=== PATIENT | female | born 1990 | race Caucasian/White ===

== ENCOUNTER → 2020-09-11 10:16 | Outpatient (CLI) | payer OTHER, SELFPAY ==
[2020-09-11 11:00] LABS: Basophils # 0.1 K/mm3 (0-0.2); Eosinophils # 0.4 K/mm3 (0.0-0.4); Hematocrit 49.6 % (37.0-47.0); Lymphocytes # 1.9 K/mm3 (0.7-4.5); Lymphocytes % 31.5 % (10-50); Mean Corpuscular HGB Conc 32.3 g/dL (31.8-35.4); Mean Corpuscular Hemoglobin 31.9 pg (27.0-31.2); Mean Corpuscular Volume 98.9 fl (81-99); Mean Platelet Volume 7.2 fl (7.4-10.4); Monocytes # 0.3 K/mm3 (0.1-1.0); Monocytes % 5.3 % (1.7-9.3); Neutrophils # 3.4 K/mm3 (1.8-7.8); Neutrophils % 56.1 % (37.0-80.0); Platelet Count 339 K/mm3 (142-424); Red Blood Count 5.01 M/mm3 (4.20-5.40); Red Cell Distribution Width 12.8 % (11.5-17.5); White Blood Count 6.1 K/mm3 (4.8-10.8)
[2020-09-11 12:13] LABS: Chloride 103 mmol/L (98-107)
[2020-09-11 12:14] LABS: Potassium 4.1 mmoL/L (3.5-5.1); Sodium 137 mmol/L (136-145)
[2020-09-11 12:16] LABS: Alanine Aminotransferase 18 U/L (12-78); Alkaline Phosphatase 54 U/L (38-126); Aspartate Amino Transferase 22 U/L (14-36); Bilirubin,Total 0.4 mg/dl (0.2-1.3); Blood Urea Nitrogen 8 mg/dl (7-17); Estimated Glomerular Filt Rate 117 ml/min (>60); GFR (African American) 141 ML/MIN (>60)
[2020-09-11 12:17] LABS: Albumin Level 4.7 g/dl (3.5-5.0); Albumin/Globulin Ratio 1.5 (1.1-1.8); Anion Gap 9.1 mEq/L (5-15); Calcium 9.6 mg/dl (8.4-10.2); Carbon Dioxide 29 mmol/L (22.0-30.0); Globulin 3.2 g/dL (1.3-3.2); Glucose 91 mg/dl (74-100); Total Protein,Serum 7.9 g/dl (6.3-8.2)
[2020-09-12 10:04] LABS: Hep A Ab, IgM Negative (Negative); Hepatitis B Core Antibody IgM Negative (Negative); Hepatitis B Surface Antigen Negative (Negative)
[2020-09-12 10:27] LABS: HIV Screen 4th Generation wRfx Non Reactive (Non Reactive); Hepatitis C Antibody <0.1 s/co ratio (0.0-0.9)
[2020-09-12 15:11] LABS: Rapid Plasma Reagin Ab Titer Non Reactive (NonRea<1:1)
== END ==
PROVIDERS: Visit Provider Obstetrics & Gynecology
DX: F11.20 Opioid dependence, uncomplicated (principal); F17.200 Nicotine dependence, unspecified, uncomplicated
CPT/HCPCS: 36415; 80053; 80074; 85025; 86592; 86703; G0432

== ENCOUNTER 2022-10-04 12:30 | Emergency (ER) | payer BC, SELFPAY ==
--- NOTE | 2022-10-04 12:50 | EXP.UTC ---
Discharge Plan Disposition Patient Disposition: Still a Patient Condition: Fair Referrals Follow up/Referrals: Ariel Garza [Primary Care Provider] - See instructions Clinical Impressions Clinical Impression: Abdominal pain Discharge ED Provider: Dheeraj Mauricio [facility] [place] General Stated complaint: RT side rib pain when breathing Time Seen by Provider: 10/04/22 12:50 History of Present Illness Provider Complaint: She states that for the past 1 day she has had right sided abdominal pain. She describes the pain as sharp, constant and 8/10 on pain scale. She denies any urinary symptoms. She still has her appendix. Related Data Allergies Allergy/AdvReac Type Severity Reaction Status Date / Time codeine Allergy Verified 10/04/22 13:39 tramadol Allergy Verified 10/04/22 13:39 [facility] Disclaimer: The information contained in this section may have been updated after the patient was seen, as this information can be updated by other users. Surgical History History of tonsillectomy Social History Smoking Status: Unknown if ever smoked alcohol intake: never current occupational status: other Travel in the last 8 weeks: None ROS Obtained: Yes All systems reviewed & no additional complaints except as documented Constitutional Constitutional: Denies chills, Denies fever(s) and Reports poor appetite ENT Ears, Nose, Mouth, and Throat: Denies dizziness and Denies sore throat Cardiovascular Cardiovascular: Denies dyspnea Respiratory Respiratory: Denies chest congestion, Denies cough and Denies dyspnea Gastrointestinal Gastrointestingal: Reports as per HPI Genitourinary Female Genitourinary: Denies difficulty voiding, Denies dysuria, Denies hematuria, Denies urinary frequency, Denies urinary incontinence, Denies urinary hesitancy and Denies urinary urgency Musculoskeletal Musculoskeletal: Denies arthralgias Integumentary/Breasts Skin/Breast: Denies rash Neurologic Neurologic: Denies dizziness Physical Exam General General appearance: alert and in no apparent distress Head Head exam: atraumatic and normocephalic Eye Eye exam: Present normal appearance, PERRL and EOMI ENT ENT exam: Present normal exam, normal oropharynx, mucous membranes moist, TM's normal bilaterally and normal external ear exam Neck Neck exam: Present normal inspection, full ROM and trachea midline; Absent tenderness, meningismus or lymphadenopathy Chest Chest inspection: Present normal inspection and symmetric chest wall rise; Absent tenderness, rash or abscess Respiratory Respiratory exam: Present normal lung sounds bilaterally; Absent respiratory distress, wheezes or stridor Cardiovascular Cardiovascular exam: Present regular rate and normal rhythm; Absent irregular rhythm, systolic murmur, diastolic murmur or JVD Abdominal Exam Abdominal exam: Present soft, tenderness, guarding and normal bowel sounds; Absent distention, rebound, rigidity or tenderness at McBurney's Point Extremities Exam Extremities exam: Present normal inspection and full ROM; Absent tenderness Back Exam Back exam: Present normal inspection and full ROM; Absent tenderness, CVA tenderness (R) or CVA tenderness (L) Neurological Exam Neurological exam: Present alert, oriented X3 and CN II-XII intact Psychiatric Psychiatric exam: Present normal affect and normal mood Skin Skin exam: Present warm, dry, intact and normal color Lymphatic Lymphatic Findings: no adenopathy Medical Decision Making Medical Records Medical records reviewed: No I reviewed the patient's medical records. Sherwin Inquiry Pt receiving controlled substance: No Lab Data Lab results reviewed: Yes I reviewed the patient's lab results.
[2022-10-04 13:20] VITALS: BP 133/94; PULSE 101; RESP 22; TEMP 37; O2SAT 97; BMI 27.6
[2022-10-04 13:44] LABS: Apearance,Urine Clear (Clear); Bilirubin,Urine Negative (Negative); Blood, Urine Negative (Negative); Color,Urine Yellow (Yellow); Glucose,Urine (UA) Negative (Negative); Ketones,Urine Negative (Negative); PH,Urine 6.5 (5.0-8.5); Protein,Urine Negative (Negative); Specific Gravity, Urine 1.015 (1.005-1.030)
[2022-10-04 13:45] LABS: UTC Leukocyte Esterase,Urine Trace (Negative); UTC Nitrate,Urine Negative (Negative); Urobilinogen,Urine 2 EU/dl (0.2)
[2022-10-04 14:29] VITALS: PULSE 87; RESP 17; O2SAT 98; BMI 27.6
--- NOTE | 2022-10-04 14:36 | US_ITS ---
FINAL REPORT CLINICAL HISTORY: RUQ pain FINDINGS: Sonographic images of the right upper quadrant were obtained. The pancreas is partially obscured.The liver has an unremarkable appearance. There is a large gallstone in the gallbladder with gallbladder wall thickening measuring 8 mm. There is a small amount of pericholecystic fluid. The common duct measures 4mm. Limited images of the right kidney are unremarkable. IMPRESSION: Large gallstone with gallbladder wall thickening and small amount of pericholecystic fluid. Cholecystitis not excluded. Consider nuclear medicine hepatobiliary scan for further evaluation. Reviewed, Interpreted and Dictated by Joselito Ledesma III, MD Transcribed by Reba Alejandre Authenticated and [facility]
--- NOTE | 2022-10-04 14:38 | HMH.EDGENADL ---
Discharge Plan Disposition Patient Disposition: Left Against Medical Advice Condition: Fair Referrals Follow up/Referrals: Ariel Garza [Primary Care Provider] - See instructions Clinical Impressions Clinical Impression: Abdominal pain Discharge ED Provider: Dheeraj Mauricio General Adult HPI General Chief complaint: Back Pain/Injury Stated complaint: RT side rib pain when breathing Time Seen by Provider: 10/04/22 12:50 Mode of Arrival: Ambulatory Source of Information: Patient Limitations: No Limitations Description of Symptoms (Recalled from ER Triage Doc. by RN): Patient reports right sided flank pain x1 week. Has been constant with episodes of it becoming severe. Denies history of stones or UTI History of Present Illness HPI narrative: Patient is a 32-year-old female with no pertinent past medical history who presents with right-sided abdominal pain. Patient states that for the last week she has had this right-sided upper quadrant pain. She says that it was coming and going but now has been constant. She says that this symptoms are getting worse. She states that she was worried that she was having a kidney stone but denies any history of kidney stone. Pain is not associated with food. Denies any fever or chills. Denies any chest pain but says that her symptoms are worse if she takes a deep breath. Related Data Allergies Allergy/AdvReac Type Severity Reaction Status Date / Time codeine Allergy Verified 10/04/22 13:39 tramadol Allergy Verified 10/04/22 13:39 [facility] Disclaimer: The information contained in this section may have been updated after the patient was seen, as this information can be updated by other users. Surgical History History of tonsillectomy Social History (Updated 10/04/22 @ 14:22 by Wiley Nava APRN) Smoking Status: Current every day smoker alcohol intake: never current occupational status: other Travel in the last 8 weeks: None ROS Obtained: Yes All systems reviewed & no additional complaints except as documented A 14 point review of system was obtained and otherwise negative except per HPI Physical Exam General General appearance: alert and in no apparent distress Head Head exam: atraumatic, normocephalic and normal inspection Eye Eye exam: Present normal appearance, PERRL and EOMI ENT ENT exam: Present normal exam, normal oropharynx, mucous membranes moist, TM's normal bilaterally and normal external ear exam Neck Neck exam: Present normal inspection, full ROM and trachea midline; Absent meningismus or lymphadenopathy Chest Chest inspection: Present normal inspection and symmetric chest wall rise; Absent tenderness Respiratory Respiratory exam: Present normal lung sounds bilaterally; Absent respiratory distress Cardiovascular Cardiovascular exam: Present regular rate and normal rhythm; Absent JVD Abdominal Exam Abdominal exam: Present soft, tenderness, normal bowel sounds and Mcguire's sign; Absent distention or guarding Abdominal tenderness: Present RUQ Extremities Exam Extremities exam: Present normal inspection, full ROM and normal capillary refill; Absent calf tenderness Back Exam Back exam: Present normal inspection; Absent tenderness Neurological Exam Neurological exam: Present alert and oriented X3 Psychiatric Psychiatric exam: Present normal affect and normal mood Skin Skin exam: Present warm, dry, intact and normal color Lymphatic Lymphatic Findings: no adenopathy Medical Decision Making Medical Records Medical records reviewed: Yes I reviewed the patient's medical records. Sherwin Inquiry Pt receiving controlled substance: No Vital Signs: 10/04/22 13:20 10/04/22 14:29 10/04/22 17:13 Temperature 98.6 F 98.5 F Temperature Source Oral Oral Pulse Rate 79 Pulse Rate [Right Brachial] 101 H 87 Respiratory Rate 22 17 17 Blood Pressure 119/68 Blood Pressure [Right Arm] 133/[address]
[2022-10-04 14:40] LABS: Basophils # 0.1 K/mm3 (0-0.2); Basophils % 0.7 % (0.1-2.0); Eosinophils # 0.1 K/mm3 (0.0-0.4); Eosinophils % 0.9 % (0.1-12.0); Hematocrit 40.8 % (37.0-47.0); Hemoglobin 13.6 g/dL (12.2-16.2); Lymphocytes # 2.1 K/mm3 (0.7-4.5); Lymphocytes % 21.9 % (10-50); Mean Corpuscular HGB Conc 33.3 g/dL (31.8-35.4); Mean Corpuscular Hemoglobin 31.5 pg (27.0-31.2); Mean Corpuscular Volume 94.7 fl (81-99); Mean Platelet Volume 7.4 fl (7.4-10.4); Monocytes # 0.5 K/mm3 (0.1-1.0); Monocytes % 4.8 % (1.7-9.3); Neutrophils # 6.7 K/mm3 (1.8-7.8); Neutrophils % 71.7 % (37.0-80.0); Platelet Count 433 K/mm3 (142-424); Red Blood Count 4.31 M/mm3 (4.20-5.40); Red Cell Distribution Width 12.5 % (11.5-17.5); White Blood Count 9.4 K/mm3 (4.8-10.8)
[2022-10-04 14:48] LABS: Chloride 95 mmol/L (98-107); Sodium 138 mmol/L (136-145)
[2022-10-04 14:51] LABS: Alanine Aminotransferase 29 U/L (12-78); Albumin Level 4.1 g/dl (3.5-5.0); Albumin/Globulin Ratio 1.1 (1.1-1.8); Alkaline Phosphatase 105 U/L (38-126); Anion Gap 9.7 mEq/L (5-15); Aspartate Amino Transferase 32 U/L (14-36); Bilirubin,Total 0.7 mg/dl (0.2-1.3); Blood Urea Nitrogen 9 mg/dl (7-17); Calcium 8.6 mg/dl (8.4-10.2); Carbon Dioxide 36 mmol/L (22.0-30.0); Creatinine Clearance Estimated 190 mL/min (50-200); Estimated Glomerular Filt Rate 142 ml/min (>60); GFR (African American) 172 ML/MIN (>60); Globulin 3.7 g/dL (1.3-3.2); Glucose 106 mg/dl (74-100); Lipase 28 U/L (23-300); Total Protein,Serum 7.8 g/dl (6.3-8.2)
[2022-10-04 14:54] LABS: Potassium 2.7 mmoL/L (3.5-5.1)
--- NOTE | 2022-10-04 15:21 | PC.NURSE ---
PT GOING FOR US
--- NOTE | 2022-10-04 15:39 | PC.NURSE ---
WE ARE HOLDING THE POTASSIUM FOR RIGHT NOW
--- NOTE | 2022-10-04 16:44 | PC.NURSE ---
spoke with dr ramirez
--- NOTE | 2022-10-04 17:11 | PC.NURSE ---
Patient refused her KCL IV and abx. She also states she would like to leave AMA. Provider was made aware and going to bedside
[2022-10-04 17:13] VITALS: BP 119/68; PULSE 79; RESP 17; TEMP 36.9; O2SAT 96
== END 2022-10-04 17:15 | disposition left against medical advice (07) ==
LOC: UTC 12:34 → ER 14:15
PROVIDERS: Nurse Practitioner Family; Emergency Provider Student in an Organized Health Care Education/Training Program; PCP Pediatrics
DX: R10.11 Right upper quadrant pain (principal); F17.210 Nicotine dependence, cigarettes, uncomplicated; Z90.89 Acquired absence of other organs
CPT/HCPCS: 76705; 80053; 81003; 83690; 85025; 87086; 96365; 96366; 96375; 99285

== ENCOUNTER 2022-10-05 11:31 | Emergency (ER) | payer OTHER, SELFPAY ==
[2022-10-05 12:00] VITALS: BP 132/96; PULSE 113; O2SAT 97
[2022-10-05 12:03] VITALS: BP 137/90; PULSE 112; RESP 16; TEMP 36.8; O2SAT 99; BMI 27.9
[2022-10-05 12:30] VITALS: BP 124/87; PULSE 98; O2SAT 98
[2022-10-05 13:00] VITALS: BP 119/88; PULSE 95; O2SAT 98
--- NOTE | 2022-10-05 13:53 | PC.NURSE ---
pt comes to nurses station, requesting to leave. AMA form signed. pt informed of risks for leaving.
[2022-10-05 13:54] VITALS: BP 145/89; PULSE 78; RESP 16; TEMP 36.7
--- NOTE | 2022-10-05 20:38 | EXP.EVENT.NO ---
Patient reportedly presented to the hospital for evaluation of abdominal pain. Patient left without being seen prior to my evaluation. Vitals charted prior to leaving her hemodynamically stable, no significant tachycardia, afebrile.
== END 2022-10-05 13:56 | disposition left against medical advice (07) ==
PROVIDERS: Emergency Provider Emergency Medicine; PCP Pediatrics
DX: R10.84 Generalized abdominal pain (principal)
CPT/HCPCS: 99211

== ENCOUNTER 2025-03-01 14:28 | Emergency (ER) | payer OTHER, SELFPAY ==
[2025-03-01 14:55] VITALS: BP 139/82; PULSE 80; RESP 18; TEMP 36.8; O2SAT 100; BMI 31.6
--- NOTE | 2025-03-01 15:05 | CT_ITS ---
PROCEDURE INFORMATION: Exam: CT Abdomen And Pelvis With Contrast Exam date and time: 03/01/2025 4:36 PM Age: 34 years old Clinical indication: Abdominal pain; Epigastric; Additional info: Epi pain/left sided pain TECHNIQUE: Imaging protocol: Computed tomography of the abdomen and pelvis with contrast. Radiation optimization: All CT scans at this facility use at least one of these dose optimization techniques: automated exposure control; mA and/or kV adjustment per patient size (includes targeted exams where dose is matched to clinical indication); or iterative reconstruction. Contrast material: ISOVUE; Contrast volume: 75 ml; Contrast route: IV; COMPARISON: US ABDOMEN LIMITED 10/04/2022 3:22 PM FINDINGS: Lungs: The visualized lung bases are clear. Minor right basilar streaky opacities suggest atelectasis or parenchymal scarring. There are a few clustered punctate pulmonary parenchymal calcifications consistent with remote granulomatous organism exposure. Pleural spaces: There are no pleural effusions. Heart: The visualized portions of the heart are unremarkable. There is no evidence of pericardial fluid collections. Liver: The liver demonstrates a few punctate calcifications consistent with remote granulomatous organism exposure. The liver is otherwise normal. Gallbladder and biliary ducts: At least 2 calcified gallstones are present.There are mild areas of gallbladder wall thickening. No definite pericholecystic fluid. Recommend right upper ultrasound for further evaluation. Pancreas: The pancreas is normal. Spleen: The spleen demonstrates punctate calcifications, consistent with remote granulomatous organism exposure. An accessory splenule is present. Adrenal glands: The adrenal glands are normal. Kidneys and ureters: The kidneys are normal. Stomach and bowel: The stomach is normal. The duodenum is unremarkable. Lack of gastrointestinal contrast limits evaluation of bowel. There are few colonic diverticula. No evidence of diverticulitis. Endovascular small amount appear within range of normal. Appendix: No evidence of appendicitis. Intraperitoneal space: No free air. No significant fluid collection. Vasculature: An IVC filter is present. There are a few benign phleboliths in the pelvis. There is no evidence of an aortic aneurysm. There is no evidence of aortic dissection, leak, rupture, or other acute vascular pathology. Mild collateral vessels are present in the anterior soft tissues of the pelvis. Lymph nodes: There is no evidence of pathologic adenopathy. Urinary bladder: The bladder is decompressed. There is mild bladder wall thickening. Reproductive: The uterus is normal. The ovaries are normal. There is a nabothian cyst present in the posterior cervix. Bones/joints: There is no evidence of acute fracture. There are mild to moderate degenerative changes of the sacroiliac joints. Soft tissues: There is a tiny fat-containing umbilical hernia. IMPRESSION: 1. Cholelithiasis with areas of mild gallbladder wall thickening. Recommend right upper quadrant ultrasound for further evaluation. 2. Mild nonspecific bladder wall thickening most likely reflecting either incomplete distention or cystitis. Correlate clinically. COMMENTS: For patients with an IVC filter, recommend assessment for a management plan for the patient's IVC filter. If there is no established management plan, recommend referral to an interventional clinician on a nonemergent basis for evaluation.
--- OUTSIDE RECORDS SUMMARY | 2025-03-01 15:18 | XMS_ITS | Clinical Summary ---
Author Organization [facility] Address [address] [place] [address] Phone Care Team Providers Care Sandwich Peddler Name Role Phone Unavailable Primary Care Provider Unavailabl e Allergies Active Allergy Reactions Criticality Noted Date Comments Codeine 12/14/2009 Nitrofurantoin Monohyd/M-Cryst 12/14 Tramadol Hydrocodone-Acetaminophen 08/22/2010 Medications methocarbamol (ROBAXIN-750) 750 mg Oral Tablet 1-2 by mouth every 8 hours when necessary pain or muscle spasm 30 Tab 0 6 Active Active Problems Problem Noted Date Diagnosed Date Asthma 12/14/2009 Surgical History Surgery Date Site/Laterality Comments HERNIA REPAIR TONSILLECTOMY TUBAL LIGATION Medical History Medical History Date Comments DVT (deep vein thrombosis) in Social History Tobacco Use Types Packs/Day Years Used Date Smoking Tobacco: Every Day Cigarettes Smokeless Tobacco: Never Tobacco Cessation:Ready to Q uit: No; Counseling Given: Yes Alcohol Use Standard Drinks/Week Comments Yes 0 (1 standard drink = 0.6 oz pur e alcohol) occasional Comments No Sex and Gender Information Value Date Recorded Sex Assigned at Not on file Legal Sex Female 6:05 AM EDT Gender Identity Not on file Sexual Orientation Not on file Obstetrics History Last Filed Vital Signs Vital Sign Reading Time Taken Comments Blood Pressure 127/85 02/19/2016 1:21 PM EDT Pulse 114 02/19/2016 1:21 PM EDT Temperature 36.9 C (98.5 F) 02/19/2016 1:21 PM EDT Respiratory Rate 20 02/19/2016 1:21 PM EDT Oxygen Saturation 100% 02/19/2016 1:21 PM EDT Inhaled Oxygen Concentration - - Weight 72.6 kg (160 lb) 02/19/2016 1:21 PM EDT Height 167.6 cm (5' 6 ) 02/19/2016 1:21 PM EDT Body Mass Index 25.82 02/19/2016 1:21 PM EDT Plan of Treatment Upcoming Encounters Date Type Department Care Team (Late st Contact Info) Description 03/07/2025 9:00 AM EDT Office Visit [facility] [address] [place] [phone] [place], [address] [place] [id number] Health Maintenance Due Date Last Done Comments Annual Wellness Exam 1992 DTaP/TDaP/Td (1 - Tdap) 2008 Hepatitis B Vaccine (1 of 3 - 19+ 3-dose series) 2008 COVID-19 Vaccine (1 - 2023-2 5 season) 2024 Influenza Vaccine (Season Ended) 2025 06/28/2015 (Declined) Meningococcal B Vaccine Aged Out No l onger eligible based on patient's age to complete this topic Pneumococcal Vaccine 0-49 Aged Out No longer eligible based on patient's age to complete this topic
[2025-03-01 15:24] LABS: Basophils # 0.1 K/mm3 (0-0.2); Basophils % 1.3 % (0.1-2.0); Eosinophils # 0.3 Kmm3 (0.0-0.4); Eosinophils % 4.1 % (0.1-12.0); Hematocrit 40.7 % (37.0-47.0); Hemoglobin 13.7 g/dL (12.2-16.2); Immature Granulocytes # 0.02 10^3uL; Immature Granulocytes % 0.3 %; Lymphocytes # 2.1 K/mm3 (0.7-4.5); Lymphocytes % 33.9 % (10-50); Mean Corpuscular HGB Conc 33.7 g/dL (31.8-35.4); Mean Corpuscular Hemoglobin 31.5 pg (27.0-31.2); Mean Corpuscular Volume 93.6 fl (81-99); Mean Platelet Volume 8.9 fl (7.4-10.4); Monocytes # 0.3 K/mm3 (0.1-1.0); Neutrophils # 3.4 K/mm3 (1.8-7.8); Neutrophils % 55.4 % (37.0-80.0); Nucleated Red Blood Cells # 0 10^3/uL; Nucleated Red Blood Cells % 0 %; Platelet Count 390 K/mm3 (142-424); Red Blood Count 4.35 M/mm3 (4.20-5.40); Red Cell Distribution Width 11.8 % (11.5-17.5); Red Cell Distribution Width-SD 40.9 fL; White Blood Count 6.2 K/mm3 (4.8-10.8)
[2025-03-01] MEDS: BELLADONNA ALKALOIDS 60 ML ML PO (15:24)
[2025-03-01] MEDS: FAMOTIDINE 20MG/2ML VIAL 20 MG IV (15:24)
--- NOTE | 2025-03-01 15:32 | ED_ITS ---
Discharge Plan Disposition Patient Disposition: Left Against Medical Advice Prescriptions Prescriptions: New amoxicillin-pot clavulanate 875-125 mg tablet 1 tab PO Q12H Qty: 20 0RF Referrals Follow up/Referrals: Ariel Garza [Primary Care Provider, Medical] - See instructions Jose Gill MD [Staff Physician, General Surgery] - See instructions Activity Restrictions/Add. Instructions Additional Instructions/Restrictions: Please follow-up with Dr. Gill for surgical consult. Please return to ED if any fevers, chills, nausea or vomiting or increased pain. Clinical Impressions Clinical Impression: Abdominal pain, Cholelithiasis Stand Alone Forms Stand Alone Forms: Work/School Release Instructions Patient Instructions: Gallstones Print Language Print Language: Burkinan Discharge ED Provider: Pasquale Roman Adult HPI <Sandra Hernandez (ED), [employer]ING [employer]ACHINE [employer]EDER - Last Filed: 03/01/25 19:04> General Chief complaint: Nausea/Vomiting/Diarrhea Stated complaint: stomach/rib pain Time Seen by Provider: 03/01/25 14:55 Mode of Arrival: Ambulatory Source of Information: Patient Description of Symptoms (Recalled from ER Triage Doc. by RN): PT REPORTS INTERMITTENT STOMACH CRAMPING FOR 2-3 DAYS. WORSE AFTER EATING. DENIES N/V/D. DENIES PAIN AT THIS TIME. ONLY AFTER EATING History of Present Illness HPI narrative: This is a 34-year-old female who presents to the ED today for intermittent stomach strengthening and stretching. She says this happens in her epigastric area and left side. It hurts worse after eating. This has been going on for 2 to 3 days. She says she is able to eat and drink okay. No nausea, vomiting or diarrhea. No fevers or chills. She is on her. Currently. She is on Suboxone therapy. No allergies or abdominal surgeries. Related Data Previous Rx's ?Medication ?Instructions ?Recorded amoxicillin 875 mg-potassium 1 tab PO Q12H #20 tabs clavulanate 125 mg tablet Allergies Allergy/AdvReac Type Severity Reaction Status Date / Time codeine Allergy Verified 10/05/22 12:15 tramadol Allergy Verified 10/05/22 12:15 PFSH <Sandra Hernandez (ED), [employer]ER - Last Filed: 03/01/25 19:04> [facility] Disclaimer: The information contained in this section may have been updated after the patient was seen, as this information can be updated by other users. Surgical History History of tonsillectomy Social History (Updated 10/04/22 @ 14:22 by Wiley Nava APRN) Smoking Status: Current every day smoker alcohol intake: never current occupational status: other Travel in the last 8 weeks?: None Have you lived/traveled outside US in past 30 days?: No Contact w/someone who lives/traveled outside US past 30 days?: No Exposure to someone with infectious disease in past 14 days?: No Do you have a fever (greater than 100.4 F or 38 C)?: No Have you tested positive for COVID-19?: No Exposed to someone with COVID-19 in past 14 days?: No Do you have a sore throat?: No Do you have a cough?: No Do you have any weakness?: No Do you have any diarrhea?: No Are you experiencing any unusual bleeding?: No Do you have any muscle aches/pain?: No Do you have any abdominal pain?: No Are you experiencing loss of taste or smell?: No <Sandra Hernandez (ED), [employer] MACHINE FEEDER - Last Filed: 03/01/25 19:04> ROS Obtained: Yes Systems reviewed as appropriate & no additional complaints except as documented Constitutional Constitutional: Reports as per HPI Physical Exam <Sandra Hernandez (ED), [employer] MACHINE FEEDER - Last Filed: 03/01/25 19:04> General General appearance: alert and in no apparent distress Head Head exam: normocephalic Eye Eye exam: Present PERRL and EOMI ENT ENT exam: Present normal oropharynx and mucous membranes moist Neck Neck exam: Present full ROM and trachea midline Respiratory Respiratory exam: Present normal lung sounds bilaterally Cardiovascular Cardiovascular exam: Present regular rate, normal rhythm, normal heart sounds, +S1 and +S2 Abdominal Exam Abdominal exam: Present soft and normal bowel sounds Abdominal tenderness: Present LUQ, epigastrium and mild Extremities Exam Extremities exam: Present normal inspection, full ROM and normal capillary refill Neurological Exam Neurological exam: Present alert, oriented X3 and normal gait Skin Skin exam: Present warm, dry and intact Medical Decision Making <Sandra Hernandez (ED), [employer]ACHINE FEEDER - Last Filed: 03/01/25 19:04> Medical Records Screening: Per USPSTF and CDC recommendations, given the prevalence of disease in our region, it is our hospital?s policy to screen for HIV and viral Hepatitis for all patients aged 18 and over and those with ongoing risk factors. Sherwin Inquiry Pt receiving controlled substance: No Sherwin was queried for this patient: No Vital Signs: 03/01/25 14:55 03/01/25 17:16 03/01/25 19:12 Temperature 98.2 F 98.5 F Temperature Source Oral Oral Pulse Rate 77 78 Pulse Rate [Radial] 80 Respiratory Rate 18 18 18 Blood Pressure 113/83 127/80 Blood Pressure [Left Arm] 139/82 Blood Pressure Mean [Left Arm] 101 Blood Pressure Source [Left Arm] Automatic Cuff Blood Pressure Position Sitting Blood Pressure Position [Left Arm] Sitting 02 Sat by Pulse Oximetry 100 99 Oxygen Delivery Method Room Air Room Air Room Air Lab Data Lab Results 03/01/25 15:08: WBC 6.2, RBC 4.35, Hgb 13.7, Hct 40.7, MCV 93.6, MCH 31.5 H, MCHC 33.7, RDW 11.8, Plt Count 390, MPV 8.9, Neut % (Auto) 55.4, Lymph % (Auto) 33.9, Mcnairy % (Auto) 5.0, Eos % (Auto) 4.1, Baso % (Auto) 1.3, Neut # (Auto) 3.4, Lymph # (Auto) 2.1, Mcnairy # (Auto) 0.3, Eos # (Auto) 0.3, Baso # (Auto) 0.1, Sodium 136, Potassium 3.8, Chloride 101, Carbon Dioxide 29, Anion Gap 9.8, BUN 8, Creatinine 0.60, Estimated Creat Clear 178, Estimated GFR 114, Est GFR ( Amer) 138, Glucose 107 H, Calcium 9.4, Magnesium 1.9, Total Bilirubin 0.6, AST 33, ALT 17, Alkaline Phosphatase 52, Troponin I < 0.01, Total Protein 8.4 H, Albumin 4.8, Globulin 3.6 H, Albumin/Globulin Ratio 1.3, Lipase 56, Serum HCG, Qual Negative, HCV Ab VINH w/Rflx PCR Qn Negative, HIV Ag/Ab Combo Qual Negative 03/01/25 15:50: Urine Color Yellow, Urine Appearance Sl cloudy, Urine pH 6.0, Ur Specific [place] 1.010, Urine Protein Negative, Urine Glucose (UA) Negative, Urine Ketones Negative, Urine Blood 2+ A, Urine Nitrate Negative, Urine Bilirubin Negative, Urine Urobilinogen 0.2, Ur Leukocyte Esterase 1+ A, Urine RBC 50-100, Urine WBC 20-50, Ur Squamous Epith Cells 20-50, Amorphous Sediment 2+, Urine Bacteria 3+ 03/01/25 15:08 03/01/25 15:08 Orders (Tests/Meds): ED MEDICATIONS Discontinued Medications Generic Name Dose Route Start Last Admin Trade Name Freq PRN Reason Stop Dose Admin Belladonna Alkaloids 60 ml 03/01/25 15:07 03/01/25 15:24 Belladonna Alkaloids 60 Ml Ml PO 03/01/25 15:08 60 ml ONCE ONE Administration Famotidine 20 mg 03/01/25 15:05 03/01/25 15:24 Famotidine 20mg/2ml Vial IV 03/01/25 15:06 20 mg ONCE ONE Administration Iopamidol 75 ml 03/01/25 16:35 03/01/25 16:37 Iopamidol-370 (76%);100ml Bottle IV 03/01/25 16:36 75 ml ONCE ONE Administration Sodium Chloride 8 ml 03/01/25 15:05 Sodium Chloride 0.9% 10ml Vial IV 03/31/25 15:04 NEEDED PRN dilute pepcid Sodium Chloride 10 ml 03/01/25 16:35 03/01/25 16:36 Sodium Chloride 0.9% 10ml Syr (Rad Only) IV 03/01/25 16:36 10 ml ONCE ONE Administration ORDERS Category Date Time Status CT abdomen pelvis w con Stat Cat Scan 03/01/25 15:05 Completed POCUS Point of Care (ER Only) Stat Exams 03/01/25 17:56 Completed CBC [Complete Blood Count Auto Diff] Stat Lab 03/01/25 15:08 Completed Comprehensive Metabolic Panel Stat Lab 03/01/25 15:08 Completed HIV Combo Stat Lab 03/01/25 15:08 Completed Hepatitis C Ab Qual. W/ RFX Stat Lab 03/01/25 15:08 Completed Lipase Stat Lab 03/01/25 15:08 Completed Magnesium Stat Lab 03/01/25 15:08 Completed Serum [HCG Qualitative, Serum] Stat Lab 03/01/25 15:08 Completed Trop I [Troponin I] Stat Lab 03/01/25 15:08 Completed Urinalysis and Microscopic Stat Lab 03/01/25 15:50 Completed Urine Culture Stat Micro 03/01/25 15:50 Results Medical Decision Narrative: patient is a 34-year-old female presenting to the emergency department for evaluation of strengthening and stretching of her abdomen and pain after eating. Patient is hemodynamically stable and nontoxic-appearing upon arrival, afebrile. Differential diagnosis includes gastric ulcer, cholecystitis, choledocholithiasis, viral illness, among others. Workup will be conducted with hematologic labs, specific imaging. Initial inventions include pain medication. . Initial workup reviewed by me urine showed 1+ leukocytes. White count was normal. Liver enzymes were also normal today. Dr. Peters did do a [id number] ultrasound and her gallbladder wall was 5 mm thick and we are concerned about cholecystitis but patient was made aware and she still wants to leave AMA. Dr. Johns did explain to her the risks versus benefits of leaving. Formal imaging read remarkable for Rere lithiasis. Patient will be given antibiotics as well as a follow-up with Dr. Gill. She still wants to leave AMA. She understands risks and benefits versus leaving AGAINST MEDICAL ADVICE. Limited RUQ ultrasound Indication: Right upper quadrant pain -Abdominal pain -Nausea/Vomiting -Flank pain -Fever -Jaundice -Pancreatitis] Identified structures: -Gallbladder -Gallbladder wall -Common bile duct -Liver Findings: Sonographic Mcguire sign: [Present/absent] Gallstones: [Present/absent] Sludge: [Present/absent] Pericholecystic fluid: [Present/absent] Maximal GB wall thickness (mm): [normal is </= 3mm] [Normal/abnormal] Common bile duct width (mm): [normal is </= 6mm] [Normal/abnormal] Gallbladder width (cm): [normal is < 4cm] [Normal/abnormal] Gallbladder length (cm): [normal is < 10cm] [Normal/abnormal] Impression: [-Normal gallbladder -Cholelithiasis -Cholecystitis -Choledocholithiasis] Images [were saved/were not saved] to permanent archive The study [was/was not] technically adequate CPT 63306-33 This study was performed by me, and I personally interpreted all images/videos. Based on my clinical judgement, these images were [adequate/inadequate] and [did/did not] necessitate further imaging. <Vincent Johns MD - Last Filed: 03/02/25 01:55> Vital Signs: 03/01/25 14:55 03/01/25 17:16 03/01/25 19:12 Temperature 98.2 F 98.5 F Temperature Source Oral Oral Pulse Rate 77 78 Pulse Rate [Radial] 80 Respiratory Rate 18 18 18 Blood Pressure 113/83 127/80 Blood Pressure [Left Arm] 139/82 Blood Pressure Mean [Left Arm] 101 Blood Pressure Source [Left Arm] Automatic Cuff Blood Pressure Position Sitting Blood Pressure Position [Left Arm] Sitting 02 Sat by Pulse Oximetry 100 99 Oxygen Delivery Method Room Air Room Air Room Air Lab Data Lab Results 03/01/25 15:08: WBC 6.2, RBC 4.35, Hgb 13.7, Hct 40.7, MCV 93.6, MCH 31.5 H, MCHC 33.7, RDW 11.8, Plt Count 390, MPV 8.9, Neut % (Auto) 55.4, Lymph % (Auto) 33.9, Mcnairy % (Auto) 5.0, Eos % (Auto) 4.1, Baso % (Auto) 1.3, Neut # (Auto) 3.4, Lymph # (Auto) 2.1, [place] # (Auto) 0.3, Eos # (Auto) 0.3, Baso # (Auto) 0.1, Sodium 136, Potassium 3.8, Chloride 101, Carbon Dioxide 29, Anion Gap 9.8, BUN 8, Creatinine 0.60, Estimated Creat Clear 178, Estimated GFR 114, Est GFR ( Amer) 138, Glucose 107 H, Calcium 9.4, Magnesium 1.9, Total Bilirubin 0.6, AST 33, ALT 17, Alkaline Phosphatase 52, Troponin I < 0.01, Total Protein 8.4 H, Albumin 4.8, Globulin 3.6 H, Albumin/Globulin Ratio 1.3, Lipase 56, Serum HCG, Qual Negative, HCV Ab VINH w/Rflx PCR Qn Negative, HIV Ag/Ab Combo Qual Negative 03/01/25 15:50: Urine Color Yellow, Urine Appearance Sl cloudy, Urine pH 6.0, Ur Specific [place] 1.010, Urine Protein Negative, Urine Glucose (UA) Negative, Urine Ketones Negative, Urine Blood 2+ A, Urine Nitrate Negative, Urine Bilirubin Negative, Urine Urobilinogen 0.2, Ur Leukocyte Esterase 1+ A, Urine RBC 50-100, Urine WBC 20-50, Ur Squamous Epith Cells 20-50, Amorphous Sediment 2+, Urine Bacteria 3+ Orders (Tests/Meds): ED MEDICATIONS Discontinued Medications Generic Name Dose Route Start Last Admin Trade Name Freq PRN Reason Stop Dose Admin Belladonna Alkaloids 60 ml 03/01/25 15:07 03/01/25 15:24 Belladonna Alkaloids 60 Ml Ml PO 03/01/25 15:08 60 ml ONCE ONE Administration Famotidine 20 mg 03/01/25 15:05 03/01/25 15:24 Famotidine 20mg/2ml Vial IV 03/01/25 15:06 20 mg ONCE ONE Administration Iopamidol 75 ml 03/01/25 16:35 03/01/25 16:37 Iopamidol-370 (76%);100ml Bottle IV 03/01/25 16:36 75 ml ONCE ONE Administration Sodium Chloride 8 ml 03/01/25 15:05 Sodium Chloride 0.9% 10ml Vial IV 03/31/25 15:04 NEEDED PRN dilute pepcid Sodium Chloride 10 ml 03/01/25 16:35 03/01/25 16:36 Sodium Chloride 0.9% 10ml Syr (Rad Only) IV 03/01/25 16:36 10 ml ONCE ONE Administration ORDERS Category Date Time Status CT abdomen pelvis w con Stat Cat Scan 03/01/25 15:05 Completed POCUS Point of Care (ER Only) Stat Exams 03/01/25 17:56 Completed CBC [Complete Blood Count Auto Diff] Stat Lab 03/01/25 15:08 Completed Comprehensive Metabolic Panel Stat Lab 03/01/25 15:08 Completed HIV Combo Stat Lab 03/01/25 15:08 Completed Hepatitis C Ab Qual. W/ RFX Stat Lab 03/01/25 15:08 Completed Lipase Stat Lab 03/01/25 15:08 Completed Magnesium Stat Lab 03/01/25 15:08 Completed Serum [HCG Qualitative, Serum] Stat Lab 03/01/25 15:08 Completed Trop I [Troponin I] Stat Lab 03/01/25 15:08 Completed Urinalysis and Microscopic Stat Lab 03/01/25 15:50 Completed Urine Culture Stat Micro 03/01/25 15:50 Results Medical Decision Narrative: patient is a 34-year-old female presenting to the emergency department for evaluation of strengthening and stretching of her abdomen and pain after eating. Patient is hemodynamically stable and nontoxic-appearing upon arrival, afebrile. Differential diagnosis includes gastric ulcer, cholecystitis, choledocholithiasis, viral illness, among others. Workup will be conducted with hematologic labs, specific imaging. Initial inventions include pain medication. . Initial workup reviewed by me urine showed 1+ leukocytes. White count was normal. Liver enzymes were also normal today. Dr. Peters did do a [id number] ultrasound and her gallbladder wall was 5 mm thick and we are concerned about cholecystitis but patient was made aware and she still wants to leave AMA. Dr. Johns did explain to her the risks versus benefits of leaving. Formal imaging read remarkable for Rere lithiasis. Patient will be given antibiotics as well as a follow-up with Dr. Gill. She still wants to leave AMA. She understands risks and benefits versus leaving AGAINST MEDICAL ADVICE. Limited RUQ ultrasound Indication: Right upper quadrant pain -Abdominal pain Identified structures: -Gallbladder -Gallbladder wall -Common bile duct -Liver Findings: Sonographic Mcguire sign: Present Gallstones: Present Sludge: Present Pericholecystic fluid: Absent Maximal GB wall thickness (mm): 5 mm Abnormal Impression: Cholelithiasis with evidence of cholecystitis Images were saved to permanent archive The study was technically adequate CPT 16876-44 This study was performed by me, and I personally interpreted all images/videos. Based on my clinical judgement, these images were adequate and did not necessitate further imaging. I do lengthy discussion with this patient with findings concerning for cholecystitis. Recommended admission for IV antibiotics and surgical consultation in the morning. Systemically, she looks well she is alert and oriented. She is aware of the severity of this disease and that she should be admitted, but prefers to manage outpatient. I have made her aware that this could lead to significant necrosis of her gallbladder and possible worsening of intra-abdominal infection and sepsis and possible . She is able to verbalize his response to me and would like to leave AGAINST MEDICAL ADVICE. I was consulted by the SHAAN, and we discussed the complexity of problems being addressed. I approved the treatment and management plan for this patient's care in the emergency department, thus performing a substantial portion of the medical decision making. Vincent Johns MD <Pasquale Roman MD - Last Filed: 03/02/25 21:35> Vital Signs: 03/01/25 14:55 03/01/25 17:16 03/01/25 19:12 Temperature 98.2 F 98.5 F Temperature Source Oral Oral Pulse Rate 77 78 Pulse Rate [Radial] 80 Respiratory Rate 18 18 18 Blood Pressure 113/83 127/80 Blood Pressure [Left Arm] 139/82 Blood Pressure Mean [Left Arm] 101 Blood Pressure Source [Left Arm] Automatic Cuff Blood Pressure Position Sitting Blood Pressure Position [Left Arm] Sitting 02 Sat by Pulse Oximetry 100 99 Oxygen Delivery Method Room Air Room Air Room Air Lab Data Lab Results 03/01/25 15:08: WBC 6.2, RBC 4.35, Hgb 13.7, Hct 40.7, MCV 93.6, MCH 31.5 H, MCHC 33.7, RDW 11.8, Plt Count 390, MPV 8.9, Neut % (Auto) 55.4, Lymph % (Auto) 33.9, [place] % (Auto) 5.0, Eos % (Auto) 4.1, Baso % (Auto) 1.3, Neut # (Auto) 3.4, Lymph # (Auto) 2.1, [place] # (Auto) 0.3, Eos # (Auto) 0.3, Baso # (Auto) 0.1, Sodium 136, Potassium 3.8, Chloride 101, Carbon Dioxide 29, Anion Gap 9.8, BUN 8, Creatinine 0.60, Estimated Creat Clear 178, Estimated GFR 114, Est GFR ( Amer) 138, Glucose 107 H, Calcium 9.4, Magnesium 1.9, Total Bilirubin 0.6, AST 33, ALT 17, Alkaline Phosphatase 52, Troponin I < 0.01, Total Protein 8.4 H, Albumin 4.8, Globulin 3.6 H, Albumin/Globulin Ratio 1.3, Lipase 56, Serum HCG, Qual Negative, HCV Ab VINH w/Rflx PCR Qn Negative, HIV Ag/Ab Combo Qual Negative 03/01/25 15:50: Urine Color Yellow, Urine Appearance Sl cloudy, Urine pH 6.0, Ur Specific [place] 1.010, Urine Protein Negative, Urine Glucose (UA) Negative, Urine Ketones Negative, Urine Blood 2+ A, Urine Nitrate Negative, Urine Bilirubin Negative, Urine Urobilinogen 0.2, Ur Leukocyte Esterase 1+ A, Urine RBC 50-100, Urine WBC 20-50, Ur Squamous Epith Cells 20-50, Amorphous Sediment 2+, Urine Bacteria 3+ Orders (Tests/Meds): ED MEDICATIONS Discontinued Medications Generic Name Dose Route Start Last Admin Trade Name Freq PRN Reason Stop Dose Admin Belladonna Alkaloids 60 ml 03/01/25 15:07 03/01/25 15:24 Belladonna Alkaloids 60 Ml Ml PO 03/01/25 15:08 60 ml ONCE ONE Administration Famotidine 20 mg 03/01/25 15:05 03/01/25 15:24 Famotidine 20mg/2ml Vial IV 03/01/25 15:06 20 mg ONCE ONE Administration Iopamidol 75 ml 03/01/25 16:35 03/01/25 16:37 Iopamidol-370 (76%);100ml Bottle IV 03/01/25 16:36 75 ml ONCE ONE Administration Sodium Chloride 8 ml 03/01/25 15:05 Sodium Chloride 0.9% 10ml Vial IV 03/31/25 15:04 NEEDED PRN dilute pepcid Sodium Chloride 10 ml 03/01/25 16:35 03/01/25 16:36 Sodium Chloride 0.9% 10ml Syr (Rad Only) IV 03/01/25 16:36 10 ml ONCE ONE Administration ORDERS Category Date Time Status CT abdomen pelvis w con Stat Cat Scan 03/01/25 15:05 Completed POCUS Point of Care (ER Only) Stat Exams 03/01/25 17:56 Completed CBC [Complete Blood Count Auto Diff] Stat Lab 03/01/25 15:08 Completed Comprehensive Metabolic Panel Stat Lab 03/01/25 15:08 Completed HIV Combo Stat Lab 03/01/25 15:08 Completed Hepatitis C Ab Qual. W/ RFX Stat Lab 03/01/25 15:08 Completed Lipase Stat Lab 03/01/25 15:08 Completed Magnesium Stat Lab 03/01/25 15:08 Completed Serum [HCG Qualitative, Serum] Stat Lab 03/01/25 15:08 Completed Trop I [Troponin I] Stat Lab 03/01/25 15:08 Completed Urinalysis and Microscopic Stat Lab 03/01/25 15:50 Completed Urine Culture Stat Micro 03/01/25 15:50 Results Medical Decision Narrative: patient is a 34-year-old female presenting to the emergency department for evaluation of strengthening and stretching of her abdomen and pain after eating. Patient is hemodynamically stable and nontoxic-appearing upon arrival, afebrile. Differential diagnosis includes gastric ulcer, cholecystitis, choledocholithiasis, viral illness, among others. Workup will be conducted with hematologic labs, specific imaging. Initial inventions include pain medication. . Initial workup reviewed by me urine showed 1+ leukocytes. White count was normal. Liver enzymes were also normal today. Dr. Peters did do a [id number] ultrasound and her gallbladder wall was 5 mm thick and we are concerned about cholecystitis but patient was made aware and she still wants to leave AMA. Dr. Johns did explain to her the risks versus benefits of leaving. Formal imaging read remarkable for Rere lithiasis. Patient will be given antibiotics as well as a follow-up with Dr. Gill. She still wants to leave AMA. She understands risks and benefits versus leaving AGAINST MEDICAL ADVICE. Limited RUQ ultrasound Indication: Right upper quadrant pain -Abdominal pain Identified structures: -Gallbladder -Gallbladder wall -Common bile duct -Liver Findings: Sonographic Mcguire sign: Present Gallstones: Present Sludge: Present Pericholecystic fluid: Absent Maximal GB wall thickness (mm): 5 mm Abnormal Impression: Cholelithiasis with evidence of cholecystitis Images were saved to permanent archive The study was technically adequate CPT 78040-13 This study was performed by me, and I personally interpreted all images/videos. Based on my clinical judgement, these images were adequate and did not necessitate further imaging. I do lengthy discussion with this patient with findings concerning for cholecystitis. Recommended admission for IV antibiotics and surgical consultation in the morning. Systemically, she looks well she is alert and oriented. She is aware of the severity of this disease and that she should be admitted, but prefers to manage outpatient. I have made her aware that this could lead to significant necrosis of her gallbladder and possible worsening of intra-abdominal infection and sepsis and possible . She is able to verbalize his response to me and would like to leave AGAINST MEDICAL ADVICE. I was consulted by the SHAAN, and we discussed the complexity of problems being addressed. I approved the treatment and management plan for this patient's care in the emergency department, thus performing a substantial portion of the medical decision making. Vincent Johns MD I was consulted by the SHAAN, and we discussed the complexity of the problems being addressed.I approved the treatment and management plan for this patient?s care in the Emergency Department, thus performing a substantive portion of the medical decision making.Signed, Pasquale Roman MD [facility] <Sandra Hernandez (ED), [employer]ING [employer]INE FEEDER - Last Filed: 03/01/25 19:04> Critical Care Time Critical Care Time: No
[2025-03-01 15:36] LABS: Alanine Aminotransferase 17 U/L (12-78); Albumin Level 4.8 g/dl (3.5-5.0); Albumin/Globulin Ratio 1.3 (1.1-1.8); Alkaline Phosphatase 52 U/L (38-126); Anion Gap 9.8 mEq/L (5-15); Aspartate Amino Transferase 33 U/L (14-36); Bilirubin,Total 0.6 mg/dl (0.2-1.3); Blood Urea Nitrogen 8 mg/dl (7-17); Calcium 9.4 mg/dl (8.4-10.2); Carbon Dioxide 29 mmol/L (22.0-30.0); Chloride 101 mmol/L (98-107); Creatinine Clearance Estimated 178 mL/min (50-200); Estimated Glomerular Filt Rate 114 ml/min (>60); GFR (African American) 138 ML/MIN (>60); Globulin 3.6 g/dL (1.3-3.2); Glucose 107 mg/dl (74-100); Lipase 56 U/L (23-300); Magnesium 1.9 mg/dl (1.6-2.3); Potassium 3.8 mmoL/L (3.5-5.1); Sodium 136 mmol/L (136-145); Total Protein,Serum 8.4 g/dl (6.3-8.2)
[2025-03-01 15:48] LABS: Troponin I < 0.01 ng/ml (0.00-0.034)
[2025-03-01 15:54] LABS: Microscopic, Urine URINE MICROSCOPIC (MICROSCOPIC)
[2025-03-01 15:57] LABS: Appearance,Urine SL CLOUDY (Clear); Bilirubin,Urine Negative (Negative); Blood, Urine 2+ (Negative); Color,Urine YELLOW (Yellow); Glucose,Urine (UA) Negative (Negative); Ketones,Urine Negative (Negative); Leukocyte Esterase,Urine 1+ (Negative); Nitrate,Urine Negative (Negative); Protein,Urine Negative (Negative); Urobilinogen,Urine 0.2 EU/dl (0.2)
[2025-03-01 16:26] LABS: HCG Qualitative, Serum Negative (Negative)
[2025-03-01 16:33] LABS: HIV Combo NEGATIVE (Negative)
[2025-03-01] MEDS: SODIUM CHLORIDE 0.9% 10ML SYR (RAD ONLY) 10 ML IV (16:36)
[2025-03-01] MEDS: IOPAMIDOL-370 (76%);100ML BOTTLE 75 ML IV (16:37)
[2025-03-01 16:41] LABS: Hepatitis C Ab Qual. W/ RFX NEGATIVE (Negative)
[2025-03-01 16:59] LABS: Bacteria,Urine 3+ /lpf; RBC,Urine 50-100 #/hpf (0-3); Squamous Epithelial Cell,Urine 20-50 #/hpf (0-5); WBC,Urine 20-50 #/hpf (0-3)
[2025-03-01 17:00] LABS: Amorphous Sediment,Urine 2+ /lpf
[2025-03-01 17:16] VITALS: BP 113/83; PULSE 77; RESP 18; O2SAT 99
[2025-03-01 19:12] VITALS: BP 127/80; PULSE 78; RESP 18; TEMP 36.9; O2SAT 97
--- NOTE | 2025-03-04 10:55 | PC.NURSE ---
ua discussed with dr huddleston, no new orders at this time
--- NOTE | 2025-03-05 09:01 | PC.NURSE ---
Urine culture results reviewed by Dr. Jasso. No new orders received.
== END 2025-03-01 19:13 | disposition left against medical advice (07) ==
PROVIDERS: Emergency Medicine; Nurse Practitioner; Emergency Provider Emergency Medicine; PCP Pediatrics
DX: R10.13 Epigastric pain (principal); K80.80 Other cholelithiasis without obstruction
CPT/HCPCS: 74177; 80053; 80074; 81001; 83690; 83735; 84484; 84703; 85025; 87086; 87088; 87186; 87389; 96374; 99285; Q9967